=== PATIENT | male | born 1940 | race Caucasian/White ===

== ENCOUNTER 2016-06-19 17:12 | Emergency (ER) | payer OTHER ==
[~2016-06-19] VITALS: Ht 187.9 cm; Wt 75.3 kg
[~2016-06-19 17:12] MED LIST: ASPIRIN325 M2 PO; B12,B-12,B 12500 MC1 PO; FLAGYL500 MG PO; FLOMAX0.4 MG PO; LEVAQUIN750 M1 PO; NATURE'S BLEND F1 MG PO; PLAVIX75 M1 PO; SIMVASTATIN20 MG PO; VICODIN 5-3001 EACH PO
[2016-06-19 18:03] LABS: BILIRUBIN NEGATIVE (NEGATIVE); BLOOD TRACE-INTACT (NEGATIVE); CLARITY SL CLOUDY (CLEAR); COLOR YELLOW (YELLOW); GLUCOSE NEGATIVE (NEGATIVE); KETONE NEGATIVE (NEGATIVE); LEUKO ESTERASE 1+ (NEGATIVE); NITRITE POSITIVE (NEGATIVE); PROTEIN TRACE (NEGATIVE); UROBILINOGEN 0.2 E.U./dl (0.2-1.0)
[2016-06-19 18:23] LABS: BACTERIA 3+; URINE REFLEX COMMENT YES (NO)
[2016-06-19] MEDS ORDERED: KEFLEX500 M1 PO (18:41)
== END 2016-06-19 18:47 | disposition home or self-care (01) ==
LOC: ED 17:12
PROVIDERS: Emergency Medicine
DX: N39.0 Urinary tract infection, site not specified (principal); R33.9 Retention of urine, unspecified; R31.9 Hematuria, unspecified; I99.8 Other disorder of circulatory system; E78.5 Hyperlipidemia, unspecified; F17.200 Nicotine dependence, unspecified, uncomplicated; Z85.46 Personal history of malignant neoplasm of prostate; Z88.8 Allergy status to other drugs, medicaments and biological substances; Z79.82 Long term (current) use of aspirin

== ENCOUNTER 2016-12-25 09:46 | Emergency (ER) | payer OTHER ==
[~2016-12-25] VITALS: Wt 62.1 kg
[~2016-12-25 09:46] MED LIST changes: +KEFLEX500 M1 PO
[2016-12-25 10:13] LABS: BILIRUBIN NEGATIVE (NEGATIVE); BLOOD 3+ (NEGATIVE); CLARITY SL CLOUDY (CLEAR); COLOR YELLOW (YELLOW); GLUCOSE NEGATIVE (NEGATIVE); KETONE NEGATIVE (NEGATIVE); LEUKO ESTERASE 1+ (NEGATIVE); NITRITE NEGATIVE (NEGATIVE); PROTEIN 2+ (NEGATIVE); UROBILINOGEN 0.2 E.U./dl (0.2-1.0)
[2016-12-25 10:37] LABS: BACTERIA 2+; RBC TNTC rbc/hpf (0-2); URINE REFLEX COMMENT YES (NO); WBC 31-40 wbc/hpf (0-5)
[2016-12-25] MEDS ORDERED: BACTRIM DS 8001 TA1 PO (10:39)
[2016-12-25] MEDS ORDERED: PYRIDIUM200 M1 PO (10:39)
== END 2016-12-25 12:18 | disposition home or self-care (01) ==
LOC: ED 09:46
PROVIDERS: Nurse Practitioner Family
DX: R33.9 Retention of urine, unspecified (principal); N39.0 Urinary tract infection, site not specified; R31.9 Hematuria, unspecified; R03.0 Elevated blood-pressure reading, without diagnosis of hypertension; F17.200 Nicotine dependence, unspecified, uncomplicated; Z90.49 Acquired absence of other specified parts of digestive tract; Z98.890 Other specified postprocedural states; Z79.82 Long term (current) use of aspirin; Z79.899 Other long term (current) drug therapy; Z88.8 Allergy status to other drugs, medicaments and biological substances

== ENCOUNTER 2017-01-05 12:36 | Inpatient (IN) | payer OTHER ==
[~2017-01-05] VITALS: Ht 187.9 cm; Wt 60.3 kg
[2017-01-05] VITALS (7 sets, daily range): BP systolic 100–127; BP diastolic 51–69
--- NOTE | ~2017-01-05 | O ---
[place], [place] OPERATIVE NOTE NAME: LUANNE SANDERS UNIT #: [id number] ROOM: 520 DOCTOR: YUDI SANTORO MD BIRTHDATE: [birth year] DOS: GASTROENDOSCOPIC REPORT HISTORY OF PRESENT ILLNESS: The patient has presented with chief complaint of GI bleed, black tarry stool, undergone investigation, status post transfusion. PROCEDURE: Today's procedure part of investigation is panendoscopy plus photographic series plus biopsy. PREMEDICATION: Versed and Diprivan. SCOPE: Olympus forward-viewing gastroscope Q10 video. REPORT: After putting the patient in the left lateral position and after application of lubricant to the scope, the scope was introduced; thereafter, under direct visualization, advanced through the length of esophagus without difficulty into gastric pouch. 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 Small antral biopsy obtained for H. pylori. Duodenal bulb, second and third part within normal limits. The patient extubated and tolerated procedure well. 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 Most likely the cause of bleeding is considered to be arteriovenous malformations, especially in view of the fact the patient has been patient has been on aspirin 325 mg daily. We did not consider coagulation therapy due to his platelet malfunction and due to abandon number of arteriovenous malformations would not have been a feasible management and on the other hand due to prostatic CA radiation therapy, hormonal therapy would not be a good idea; therefore, transfusion and removal of aspirin if possible or reduction of the aspirin dosage and if the aspirin does continue, Carafate 1 gram q.i.d. in addition to Protonix would be recommended. [place], [place] OPERATIVE NOTE NAME: LUANNE SANDERS Mart UNIT #: [id number] ROOM: 520 DOCTOR: YUDI SANTORO MD BIRTHDATE: [birth year] YUDI SANTORO MD CM:OPRECORD:OPERATIVE NOTE [id number] YUDI SANTORO MD 01/07/171935 interface
--- NOTE | ~2017-01-05 | O ---
[place], [place] OPERATIVE NOTE NAME: LUANNE SANDERS UNIT #: [id number] ROOM: 520 DOCTOR: YUDI SANTORO MD BIRTHDATE: [birth year] DOS: HISTORY OF PRESENT ILLNESS: A 76-year-old patient who has presented with drop in H and H, melanotic stool, status post transfusion for hemoglobin of 7, status post improvement of his medical conditions for anemia. His latest H and H have improved to 10 and 33. His platelet count has been 449. His urine culture, no bacteria. His comprehensive metabolic panel, electrolytes balanced, BUN 2.7, liver function test normal. His chest x-ray, COPD without active pulmonary disease. PAST MEDICAL HISTORY: Ischemic colitis in the past and prostate CA and peripheral vascular disease, protein malnutrition and GI bleed. SOCIAL HISTORY: Nonalcohol consumer, however is smoker. FAMILY HISTORY: Noncontributory. ALLERGIES: ALCOHOL, LIDOCAINE AND BACTINE. MEDICATIONS: List has been reviewed. The patient has been on aspirin product. PROCEDURE: Today's procedure part of investigation of GI bleed is colonoscopy and panendoscopy. PREMEDICATION: Versed and Diprivan. SCOPE: Olympus forward-viewing colonoscope 10L video. REPORT: After putting the patient in the left lateral position and after application of lubricant to rectal pouch and digital examination, scope was introduced. Thereafter, under direct visualization, I advanced through the length of colon with difficulty due to tortuosity of colon. We were expecting to find radiation proctitis on this patient; however, the rectal anatomy, rectosigmoid anatomy all within normal limits. Scope was negotiated through a tortuous colon to anastomotic site. Photographic series of suture line and fibrosis of the area was obtained. Small bowel segment was entered, which was benign. The patient extubated, tolerated procedure well. IMPRESSION: No radiation proctitis. No evidence of ulceration, no lower gastrointestinal bleed, status post previous subsegmental resection of cecum with normal anastomotic site from 1998. PLAN AND DISCUSSION: We are going to proceed with panendoscopy. [place], [place] OPERATIVE NOTE NAME: LUANNE SANDERS UNIT #: [id number] ROOM: 520 DOCTOR: YUDI SANTORO MD BIRTHDATE: [birth year] YUDI SANTORO MD CM:SARAVANANORD:OPERATIVE NOTE [id number] YUDI SANTORO MD 01/07/171913 interface
[~2017-01-05 12:36] MED LIST changes: +BACTRIM DS 8001 TA1 PO; +PYRIDIUM200 M1 PO
[2017-01-05 12:58] LABS: BASO % 0.2 % (0.0-1.0); EOS # 0.2 10*3/uL (0.0-0.4); HEMATOCRIT 28.2 % (42.0-52.0); HEMOGLOBIN 8.6 g/dl (14.0-18.0); LYMPH # 1.2 10*3/uL (1.3-4.4); LYMPH % 12.2 % (27.0-41.0); MEAN CELL VOLUME 87.6 fl (80.0-94.0); MEAN CORPUSCULAR HGB 26.7 pg (27.0-31.0); MEAN CORPUSCULAR HGB CONC 30.5 g/dl (33.0-37.0); MEAN PLATELET VOLUME 8.6 fl (9.6-12.3); MONO # 0.7 10*3/uL (0.1-1.0); MONO % 7.6 % (3.0-9.0); NEUT # 7.3 10*3/uL (2.3-7.9); NEUT % 77.6 % (47.0-73.0); PLATELET COUNT AUTOMATED 391 10*3/uL (130-400); RED BLOOD COUNT 3.22 10*6/uL (4.50-5.90); RED CELL DISTRI WIDTH 17.2 % (0-14.5); WHITE BLOOD COUNT 9.4 10*3/uL (4.8-10.8)
[2017-01-05 13:06] LABS: BILIRUBIN NEGATIVE (NEGATIVE); BLOOD 2+ (NEGATIVE); CLARITY CLOUDY (CLEAR); COLOR YELLOW (YELLOW); GLUCOSE NEGATIVE (NEGATIVE); KETONE NEGATIVE (NEGATIVE); LEUKO ESTERASE 2+ (NEGATIVE); NITRITE NEGATIVE (NEGATIVE); PH 7.5 (5.0-9.0); PROTEIN 1+ (NEGATIVE); UROBILINOGEN 0.2 E.U./dl (0.2-1.0)
[2017-01-05 13:06] LABS: PROTHROMBIN TIME 10.7 SECONDS (9.0-12.4)
[2017-01-05 13:15] LABS: ALBUMIN 2.6 gm/dl (3.1-4.5); ALKALINE PHOSPHATASE 79 U/L (45-117); BILIRUBIN, TOTAL 0.4 mg/dl (0.2-1.0); BUN 10 mg/dl (7-24); CARBON DIOXIDE 26 mmol/L (21-32); CHLORIDE 103 mmol/L (98-107); EST GLOM FILT AFRICAN AMERICAN > 60 ml/min; GLUCOSE 100 mg/dL (65-99); MAGNESIUM 2.3 mg/dL (1.5-2.1); POTASSIUM 3.6 mmol/L (3.5-5.1); SGOT/AST 11 IU/L (3-35); SGPT/ALT 15 U/L (12-78); SODIUM 136 mmol/L (136-145); TOTAL PROTEIN 7.2 gm/dL (6.4-8.2)
[2017-01-05 13:45] LABS: BACTERIA 3+; CALCIUM OXALATE CRYSTALS 1+
[2017-01-05 13:46] LABS: RBC TNTC rbc/hpf (0-2); YEAST 3+
[2017-01-05 13:47] LABS: URINE REFLEX COMMENT YES (NO)
[2017-01-05] MEDS ORDERED: TAMSULOSIN HCL0.4 MG PO (18:10)
[2017-01-05] MEDS ORDERED: MELATONIN3 MG PO (18:10)
[2017-01-05] MEDS ORDERED: TRAMADOL HCL50 MG PO (18:11)
[2017-01-05] MEDS ORDERED: ENSURE PLUS 23237 ML PO (18:14)
[2017-01-06] VITALS (11 sets, daily range): BP systolic 100–121; BP diastolic 50–66
[2017-01-06 06:03] LABS: BASO % 0.3 % (0.0-1.0); EOS # 0.4 10*3/uL (0.0-0.4); EOS % 5.5 % (1.0-4.0); HEMATOCRIT 25.6 % (42.0-52.0); HEMOGLOBIN 7.8 g/dl (14.0-18.0); LYMPH # 1.4 10*3/uL (1.3-4.4); LYMPH % 18.2 % (27.0-41.0); MEAN CELL VOLUME 88.6 fl (80.0-94.0); MEAN CORPUSCULAR HGB CONC 30.5 g/dl (33.0-37.0); MONO # 0.6 10*3/uL (0.1-1.0); MONO % 8.2 % (3.0-9.0); NEUT # 5.2 10*3/uL (2.3-7.9); NEUT % 67.5 % (47.0-73.0); PLATELET COUNT AUTOMATED 383 10*3/uL (130-400); RED BLOOD COUNT 2.89 10*6/uL (4.50-5.90); RED CELL DISTRI WIDTH 17.1 % (0-14.5); WHITE BLOOD COUNT 7.7 10*3/uL (4.8-10.8)
[2017-01-06 06:09] LABS: ALBUMIN 2.2 gm/dl (3.1-4.5); ALKALINE PHOSPHATASE 66 U/L (45-117); BILIRUBIN, TOTAL 0.3 mg/dl (0.2-1.0); BUN 8 mg/dl (7-24); CARBON DIOXIDE 24 mmol/L (21-32); CHLORIDE 109 mmol/L (98-107); CHOLESTEROL 69 mg/dL (<200); EST GLOM FILT AFRICAN AMERICAN > 60 ml/min; GLUCOSE 81 mg/dL (65-99); HDL CHOLESTEROL 42 mg/dl (40-60); LDL CHOLESTEROL 13 mg/dL (9-159); MAGNESIUM 2.1 mg/dL (1.5-2.1); PHOSPHOROUS 2.7 mg/dL (2.5-4.9); POTASSIUM 3.9 mmol/L (3.5-5.1); SGOT/AST 8 IU/L (3-35); SGPT/ALT 11 U/L (12-78); SODIUM 141 mmol/L (136-145); TOTAL PROTEIN 6.1 gm/dL (6.4-8.2); TRIGLYCERIDES 69 mg/dl (<150); VLDL CHOLESTEROL 14 mg/dL (6-40)
[2017-01-06 06:15] LABS: FREE T4 1.24 ng/dl (0.76-1.46)
[2017-01-06 07:08] LABS: HEMOGLOBIN A1c 4.9 % (4.8-5.6)
[2017-01-07] VITALS (9 sets, daily range): BP systolic 88–133; BP diastolic 33–75
[2017-01-07 06:07] LABS: BASO % 0.2 % (0.0-1.0); EOS # 0.3 10*3/uL (0.0-0.4); EOS % 3.1 % (1.0-4.0); LYMPH # 1.5 10*3/uL (1.3-4.4); LYMPH % 14.4 % (27.0-41.0); MEAN CELL VOLUME 87.3 fl (80.0-94.0); MEAN PLATELET VOLUME 8.8 fl (9.6-12.3); MONO # 0.9 10*3/uL (0.1-1.0); MONO % 8.2 % (3.0-9.0); NEUT # 7.8 10*3/uL (2.3-7.9); NEUT % 73.7 % (47.0-73.0); PLATELET COUNT AUTOMATED 449 10*3/uL (130-400); RED BLOOD COUNT 3.85 10*6/uL (4.50-5.90); RED CELL DISTRI WIDTH 16.6 % (0-14.5); WHITE BLOOD COUNT 10.6 10*3/uL (4.8-10.8)
[2017-01-07 06:28] LABS: HEMATOCRIT 33.6 % (42.0-52.0); HEMOGLOBIN 10.4 g/dl (14.0-18.0)
[2017-01-07 06:44] LABS: ALBUMIN 2.7 gm/dl (3.1-4.5); BUN 6 mg/dl (7-24); CARBON DIOXIDE 26 mmol/L (21-32); CHLORIDE 108 mmol/L (98-107); GLUCOSE 101 mg/dL (65-99); POTASSIUM 4.4 mmol/L (3.5-5.1); SODIUM 140 mmol/L (136-145)
[2017-01-07 06:47] LABS: ALKALINE PHOSPHATASE 79 U/L (45-117); BILIRUBIN, TOTAL 0.5 mg/dl (0.2-1.0); EST GLOM FILT AFRICAN AMERICAN > 60 ml/min; SGOT/AST 10 IU/L (3-35); SGPT/ALT 13 U/L (12-78); TOTAL PROTEIN 7.2 gm/dL (6.4-8.2)
[2017-01-08] VITALS: BP 104/48
[2017-01-08 06:19] LABS: BASO % 0.2 % (0.0-1.0); EOS # 0.1 10*3/uL (0.0-0.4); EOS % 1.4 % (1.0-4.0); HEMATOCRIT 29.4 % (42.0-52.0); HEMOGLOBIN 9.1 g/dl (14.0-18.0); LYMPH # 1.5 10*3/uL (1.3-4.4); LYMPH % 16.6 % (27.0-41.0); MEAN CELL VOLUME 87.2 fl (80.0-94.0); MEAN PLATELET VOLUME 8.8 fl (9.6-12.3); MONO # 0.8 10*3/uL (0.1-1.0); MONO % 9.2 % (3.0-9.0); NEUT # 6.5 10*3/uL (2.3-7.9); NEUT % 72.2 % (47.0-73.0); PLATELET COUNT AUTOMATED 325 10*3/uL (130-400); RED BLOOD COUNT 3.37 10*6/uL (4.50-5.90); RED CELL DISTRI WIDTH 16.8 % (0-14.5); WHITE BLOOD COUNT 9.1 10*3/uL (4.8-10.8)
[2017-01-08 06:49] LABS: ALBUMIN 2.2 gm/dl (3.1-4.5); BILIRUBIN, TOTAL 0.5 mg/dl (0.2-1.0); BUN 7 mg/dl (7-24); CARBON DIOXIDE 26 mmol/L (21-32); CHLORIDE 107 mmol/L (98-107); EST GLOM FILT AFRICAN AMERICAN > 60 ml/min; GLUCOSE 92 mg/dL (65-99); POTASSIUM 3.5 mmol/L (3.5-5.1); SGOT/AST 13 IU/L (3-35); SGPT/ALT 11 U/L (12-78); SODIUM 140 mmol/L (136-145)
[2017-01-08 06:59] LABS: ALKALINE PHOSPHATASE 67 U/L (45-117); TOTAL PROTEIN 6.1 gm/dL (6.4-8.2)
[2017-01-08 08:00] VITALS: BP 98/60
[2017-01-08 12:00] VITALS: BP 84/64
[2017-01-08 16:00] VITALS: BP 110/47
[2017-01-08 20:00] VITALS: BP 99/45
[2017-01-09] VITALS: BP 87/31
[2017-01-09 00:05] VITALS: BP 98/50
[2017-01-09 06:58] LABS: BASO % 0.2 % (0.0-1.0); EOS # 0.2 10*3/uL (0.0-0.4); EOS % 1.4 % (1.0-4.0); HEMOGLOBIN 8.6 g/dl (14.0-18.0); IG # 0.1 10*3/uL (0.0-0.1); LYMPH # 1.5 10*3/uL (1.3-4.4); LYMPH % 14.4 % (27.0-41.0); MEAN CELL VOLUME 86.7 fl (80.0-94.0); MEAN CORPUSCULAR HGB 26.6 pg (27.0-31.0); MEAN CORPUSCULAR HGB CONC 30.7 g/dl (33.0-37.0); MEAN PLATELET VOLUME 9.1 fl (9.6-12.3); MONO # 0.7 10*3/uL (0.1-1.0); NEUT # 8.1 10*3/uL (2.3-7.9); NEUT % 76.2 % (47.0-73.0); PLATELET COUNT AUTOMATED 284 10*3/uL (130-400); RED BLOOD COUNT 3.23 10*6/uL (4.50-5.90); RED CELL DISTRI WIDTH 16.9 % (0-14.5); WHITE BLOOD COUNT 10.6 10*3/uL (4.8-10.8)
[2017-01-09 08:00] VITALS: BP 83/46
[2017-01-09 09:46] VITALS: BP 100/56
[2017-01-09 12:00] VITALS: BP 87/44
[2017-01-09] MEDS ORDERED: MIRTAZAPINE15 M2 PO (15:13)
[2017-01-09] MEDS ORDERED: PROTONIX40 MG PO (15:14)
== END 2017-01-09 17:20 | disposition home or self-care (01) | DRG 377 ==
LOC: ED 12:36 → EDHOLD 17:06 → 5E 17:06
PROVIDERS: Internal Medicine Hospice and Palliative Medicine; Nurse Practitioner Family; Registered Nurse; Student in an Organized Health Care Education/Training Program
PROC: 0DJD8ZZ Inspection of Lower Intestinal Tract, Via Natural or Artificial Opening Endoscopic (ICD-10-PCS; principal; 2017-01-07)
PROC: 0DB68ZX Excision of Stomach, Via Natural or Artificial Opening Endoscopic, Diagnostic (ICD-10-PCS; principal; 2017-01-07)
DX: K31.811 Angiodysplasia of stomach and duodenum with bleeding (principal); E41 Nutritional marasmus; E87.8 Other disorders of electrolyte and fluid balance, not elsewhere classified; E43 Unspecified severe protein-calorie malnutrition; C61 Malignant neoplasm of prostate; E83.51 Hypocalcemia; D62 Acute posthemorrhagic anemia; Z89.611 Acquired absence of right leg above knee; R31.9 Hematuria, unspecified; Z68.1 Body mass index [BMI] 19.9 or less, adult; K44.9 Diaphragmatic hernia without obstruction or gangrene; E78.5 Hyperlipidemia, unspecified; I73.9 Peripheral vascular disease, unspecified; K59.04 Chronic idiopathic constipation; D72.810 Lymphocytopenia; F17.210 Nicotine dependence, cigarettes, uncomplicated; Z90.49 Acquired absence of other specified parts of digestive tract; Z92.3 Personal history of irradiation; Z88.8 Allergy status to other drugs, medicaments and biological substances; Z80.0 Family history of malignant neoplasm of digestive organs; Z82.49 Family history of ischemic heart disease and other diseases of the circulatory system

== ENCOUNTER 2017-02-02 21:42 | Inpatient (IN) | payer OTHER ==
[~2017-02-02] VITALS: Ht 172.7 cm; Wt 58.2 kg
--- NOTE | ~2017-02-02 | PR ---
[place], [place] PROGRESS NOTE NAME: LUANNE SANDERS [facility] #: [id number] UNIT #: [id number] ROOM: 510 DOCTOR: JOSE LUIS RICHTER MD BIRTHDATE: [birth year] DOS: 02/07/2017 SUBJECTIVE: The patient was seen today 02/07/2017 just prior to a pharmacologic stress test. He is a 76-year-old man who presented several days ago with altered mentation and weakness. He was found to have an elevated troponin. He recently completed radiation therapy for prostate cancer and does have some problems with urinary retention and recurrent urinary tract infections. The of his troponin elevations suggested that he had a myocardial infarction prior to his hospitalization. He has had no symptoms of coronary artery disease and no acute EKG changes. An echocardiogram done on 02/03/2017 showed normal left ventricular size and systolic function with stage II diastolic relaxation abnormalities. Wall motion could not be assessed. Urinary tract infection has been treated and his sensorium has improved. PHYSICAL EXAMINATION: VITAL SIGNS: Today, his pulse is 60 and regular with an occasional premature beat. Blood pressure is 125/48. He is afebrile. He weighs 58.2 kilograms with a body mass index of 19.5. NECK: Supple. He has no jugular distention. Carotids are full. LUNGS: Respirations are unlabored with distant lung sounds. HEART: Has a regular rhythm. Heart tones are also distant. He has a fourth heart sound, but no third heart sound or murmur. ABDOMEN: Benign. 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 His left ankle appears normal. IMPRESSION: 1. Recent myocardial infarction. 2. Urinary tract infection. 3. Indwelling Kirkpatrick catheter. 4. Status post radiation therapy for prostate cancer. PLAN: We will proceed with a pharmacologic stress test today. Further recommendations will depend upon the results of his stress test. We thank the hospitalist physicians for asking our advice regarding his care. [place], [place] PROGRESS NOTE NAME: LUANNE SANDERS [facility] #: [id number] UNIT #: [id number] ROOM: 510 DOCTOR: JOSE LUIS RICHTER MD BIRTHDATE: [birth year] JOSE LUIS RICHTER MD CM:PNTRANS 1151 [id number] JOSE LUIS RICHTER MD 02/07/17 1312 interface
[2017-02-02 01:30] VITALS: BP 103/58
[~2017-02-02 21:42] MED LIST changes: +ENSURE PLUS 23237 ML PO; +MELATONIN3 MG PO; +MIRTAZAPINE15 M2 PO; +PROTONIX40 MG PO; +TAMSULOSIN HCL0.4 MG PO; +TRAMADOL HCL50 MG PO
[2017-02-02 21:54] VITALS: BP 104/49
[2017-02-02 22:21] LABS: BASO % 0.2 % (0.0-1.0); EOS % 0.3 % (1.0-4.0); HEMOGLOBIN 9.1 g/dl (14.0-18.0); LYMPH # 1.4 10*3/uL (1.3-4.4); LYMPH % 15.8 % (27.0-41.0); MEAN CELL VOLUME 82.9 fl (80.0-94.0); MEAN CORPUSCULAR HGB 25.1 pg (27.0-31.0); MEAN CORPUSCULAR HGB CONC 30.3 g/dl (33.0-37.0); MEAN PLATELET VOLUME 9.1 fl (9.6-12.3); MONO # 0.7 10*3/uL (0.1-1.0); MONO % 8.1 % (3.0-9.0); NEUT # 6.8 10*3/uL (2.3-7.9); NEUT % 75.2 % (47.0-73.0); PLATELET COUNT AUTOMATED 215 10*3/uL (130-400); RED BLOOD COUNT 3.62 10*6/uL (4.50-5.90); RED CELL DISTRI WIDTH 16.3 % (0-14.5); WHITE BLOOD COUNT 9.1 10*3/uL (4.8-10.8)
[2017-02-02 22:30] LABS: INTERNATIONAL NORM RATIO 1.1 (2.0-3.5)
[2017-02-02 22:37] LABS: ALBUMIN 2.4 gm/dl (3.1-4.5); ALKALINE PHOSPHATASE 94 U/L (45-117); BUN 10 mg/dl (7-24); CHLORIDE 107 mmol/L (98-107); LIPASE 94 U/L (73-393); MAGNESIUM 2.2 mg/dL (1.5-2.1); POTASSIUM 3.9 mmol/L (3.5-5.1); SGOT/AST 28 IU/L (3-35); SGPT/ALT 17 U/L (12-78); SODIUM 140 mmol/L (136-145); TOTAL PROTEIN 6.9 gm/dL (6.4-8.2)
--- NOTE | 2017-02-02 22:40 | NUR ---
DR. BERG INFORMED OF CRITICAL LAB RESULTS.
[2017-02-02 22:52] LABS: BILIRUBIN NEGATIVE (NEGATIVE); BLOOD 2+ (NEGATIVE); CLARITY CLOUDY (CLEAR); COLOR YELLOW (YELLOW); GLUCOSE NEGATIVE (NEGATIVE); KETONE TRACE (NEGATIVE); LEUKO ESTERASE 3+ (NEGATIVE); NITRITE POSITIVE (NEGATIVE); SPECIFIC GRAVITY 1.015 (1.005-1.030)
[2017-02-02 23:10] LABS: BACTERIA 3+
[2017-02-02 23:13] LABS: WBC TNTC wbc/hpf (0-5)
[2017-02-03 01:30] VITALS: BP 103/58
--- NOTE | 2017-02-03 01:30 | NUR ---
A 76, admitted to ICCU, under the services of BLAIRE Jones DO with a diagnosis of UTI, ELEVATED TROPONIN. Chief complaint is GENERALIZED WEAKNESS FOR 2 DAYS, UNABLE TO AMBULATE. Patient arrived via ambulance from ER. Monitor applied. Initial assessment completed. Vital signs taken and recorded. BLAIRE JONES DO notified of admission to the unit. Orders received. See assessment for past medical history, medications and allergies. Patient and/or family oriented to unit. [facility]U visitation policy reviewed. Clothing/patient valuable form completed. BLANCA FERREIRA
--- NOTE | 2017-02-03 01:47 | NUR ---
UNABLE TO VERIFY HOME MEDS, OR ANY MEDICAL HISTORY. PATIENT DISORIENTED. NO FAMILY CAME TO FLOOR WITH PATIENT.
[2017-02-03 04:00] VITALS: BP 102/58
[2017-02-03 05:51] LABS: BASO % 0.2 % (0.0-1.0); EOS % 0.4 % (1.0-4.0); HEMOGLOBIN 8.1 g/dl (14.0-18.0); LYMPH # 1.2 10*3/uL (1.3-4.4); LYMPH % 13.4 % (27.0-41.0); MEAN CORPUSCULAR HGB 25.6 pg (27.0-31.0); MEAN CORPUSCULAR HGB CONC 31.2 g/dl (33.0-37.0); MEAN PLATELET VOLUME 9.1 fl (9.6-12.3); MONO # 0.7 10*3/uL (0.1-1.0); MONO % 7.9 % (3.0-9.0); NEUT % 77.5 % (47.0-73.0); PLATELET COUNT AUTOMATED 200 10*3/uL (130-400); RED BLOOD COUNT 3.17 10*6/uL (4.50-5.90); RED CELL DISTRI WIDTH 16.3 % (0-14.5); WHITE BLOOD COUNT 9.1 10*3/uL (4.8-10.8)
[2017-02-03 06:21] LABS: ACT PARTIAL THROMBO TIME 43.5 SECONDS (20.8-31.5); INTERNATIONAL NORM RATIO 1.1 (2.0-3.5)
[2017-02-03 06:22] LABS: BUN 10 mg/dl (7-24); CHLORIDE 111 mmol/L (98-107); CHOLESTEROL 83 mg/dL (<200); CREATININE 0.63 mg/dL (0.70-1.30); HDL CHOLESTEROL 38 mg/dl (40-60); LDL CHOLESTEROL 30 mg/dL (9-159); MAGNESIUM 1.8 mg/dL (1.5-2.1); PHOSPHOROUS 2.7 mg/dL (2.5-4.9); POTASSIUM 3.6 mmol/L (3.5-5.1); SODIUM 141 mmol/L (136-145); TRIGLYCERIDES 74 mg/dl (<150); VLDL CHOLESTEROL 15 mg/dL (6-40)
[2017-02-03 08:00] VITALS: BP 126/54
--- NOTE | 2017-02-03 09:15 | NUR ---
MEDS RECONCILED FROM DC SUMMARY LIST FROM 2 WEEKS AGO, TO BRING IN PILL BOTTLES TO CONFIRM
[2017-02-03 09:33] LABS: IRON 36 ug/dL (65-175); TOTAL IRON BINDING CAPACITY 331 ug/dl (250-450)
[2017-02-03 10:04] LABS: VITAMIN D, 25-HYDROXY 32.3 ng/mL (30-100)
--- NOTE | 2017-02-03 11:13 | NUR ---
BROUGHT IN PILL BOTTLES, HOME MEDS CONFIRMED
--- NOTE | 2017-02-03 11:27 | NUR ---
Spinner Fixer in to talk to patient. Patient states lives at home with . There are no steps in the home. Physician: lucia melendez Pharmacy: [facility] services: none Patient's level of ADLs: MINIMAL ASSIST Patient has working utilities: all working DME: cane, walker, wheelchair Follow-up physician's appointment after d/c: will be made by hospitalist nurse director upon discharge Does patient want to access PORTAL?: no Discharge plan discussed with patient, present, patient lives at home with , states he is independent in adls and ambulation, discussed with them a discharge plan including a short term shelter and both refused, stated patient would be going home with her, also discussed VNA and she was receptive to this, given choice of companies, she chose [facility], enterprise resource planner will sent referral to [facility] for when patient is medically stable for discharge. MYRA ÁLVAREZ
[2017-02-03 12:00] VITALS: BP 110/42
--- NOTE | 2017-02-03 15:12 | NUR ---
Nutritional Support Services Note: Pt with Dx of severe protein calorie malnutrition. Pt states he cannot drink any supplement as they give him diarrhea. Discussed protein rich foods and need for increase in protein and calories. Pt is receptive to Beneprotein packets QID, with meals and at hs snack. Appetite is good for meals. Will follow as needed. Current wt 128#, 5# decrease in one month. Carolyn Holbrook
[2017-02-03 16:00] VITALS: BP 95/54
[2017-02-03 20:00] VITALS: BP 123/57
--- NOTE | 2017-02-03 20:07 | NUR ---
FAMILY MEMBER VISITS. PT READING NEWSPAPER.
[2017-02-04] VITALS: BP 130/60
[2017-02-04 04:00] VITALS: BP 98/36
[2017-02-04 04:38] LABS: BASO % 0.4 % (0.0-1.0); EOS # 0.1 10*3/uL (0.0-0.4); EOS % 1.9 % (1.0-4.0); HEMATOCRIT 25.9 % (42.0-52.0); LYMPH # 1.5 10*3/uL (1.3-4.4); LYMPH % 20.6 % (27.0-41.0); MEAN CORPUSCULAR HGB 25.6 pg (27.0-31.0); MEAN CORPUSCULAR HGB CONC 30.9 g/dl (33.0-37.0); MEAN PLATELET VOLUME 9.3 fl (9.6-12.3); MONO # 0.6 10*3/uL (0.1-1.0); MONO % 8.6 % (3.0-9.0); NEUT # 5.1 10*3/uL (2.3-7.9); PLATELET COUNT AUTOMATED 215 10*3/uL (130-400); RED BLOOD COUNT 3.12 10*6/uL (4.50-5.90); RED CELL DISTRI WIDTH 16.6 % (0-14.5); WHITE BLOOD COUNT 7.4 10*3/uL (4.8-10.8)
--- NOTE | 2017-02-04 06:23 | NUR ---
PT CURLED ON HIS RIGHT SIDE...HAS BEEN EXPELLING FLATUS INTERMITTENTLY THROUGHOUT THE NIGHT.... FREQUENT CHECKS, INCLUDING NOW, FIND HIM TO BE CLEAN AND DRY. HE CLAIMS COMFORT AND BEGINS TO PULL BLANKETS ON QUICKLY AND RETURN TO SLEEP.
[2017-02-04 08:00] VITALS: BP 102/52
--- NOTE | 2017-02-04 09:00 | NUR ---
case management visits with patient, patient will be going home with , will notify [facility] when patient is medically stable for discharge
[2017-02-04 12:00] VITALS: BP 122/50
--- NOTE | 2017-02-04 12:12 | NUR ---
UP TO RECLINER AFTER PT PUT HIS LEG ON, WITH HEAVY ASSIST X 2, PT WILL NOT STAND UPRIGHT DESPITE MULTIPLE CLUES TO STAND TALL, HE HANGS HIS HEAD AND LEANS HEAVILY FORWARD
--- NOTE | 2017-02-04 12:22 | NUR ---
insurance demos given to Tia, emailed corporate fax team fax number for clinicals, reference number is [id number]
--- NOTE | 2017-02-04 14:58 | NUR ---
PHYSICAL THERAPY Atient evaluated on 5, full evaluation to follow. Continue with PT as per sunil of care with fall, max(A) x 2, right BKA and acute debility as well as oor trunk control precautions. Will require SNF versus in-patint rehab for mpaired mobility ion order to return to (i) PLOF. PAtient mod complexity via bartholomew review, tests and evaluation: 22314. Thank you for this referral. Lashae Soto,PT
--- NOTE | 2017-02-04 15:11 | NUR ---
Occupational Therapy evaluation completed this date in ICCU with full evaluation to follow. Precaution includes fall risk, impaired cognition, ICCU, fernandez, moderate complexity level. Recommend OT per POC and SNF upon d/c to enable return home at [facility]. Becca Taylor OTR/L
[2017-02-04 16:00] VITALS: BP 126/50
--- NOTE | 2017-02-04 18:32 | NUR ---
TRANSFERRED TO 510, REPORT TO CASSANDRA GIBSON
[2017-02-04 20:00] VITALS: BP 114/57
[2017-02-05] VITALS: BP 116/60
--- NOTE | 2017-02-05 00:18 | NUR ---
24 HR chart check completed.
[2017-02-05 01:06] VITALS: BP 116/60
[2017-02-05 07:17] LABS: BASO % 0.3 % (0.0-1.0); EOS # 0.3 10*3/uL (0.0-0.4); EOS % 3.2 % (1.0-4.0); HEMATOCRIT 26.6 % (42.0-52.0); HEMOGLOBIN 8.2 g/dl (14.0-18.0); LYMPH # 1.5 10*3/uL (1.3-4.4); MEAN CELL VOLUME 82.6 fl (80.0-94.0); MEAN CORPUSCULAR HGB 25.5 pg (27.0-31.0); MEAN CORPUSCULAR HGB CONC 30.8 g/dl (33.0-37.0); MONO # 0.7 10*3/uL (0.1-1.0); MONO % 8.5 % (3.0-9.0); NEUT # 5.3 10*3/uL (2.3-7.9); NEUT % 68.6 % (47.0-73.0); PLATELET COUNT AUTOMATED 227 10*3/uL (130-400); RED BLOOD COUNT 3.22 10*6/uL (4.50-5.90); RED CELL DISTRI WIDTH 16.9 % (0-14.5); WHITE BLOOD COUNT 7.7 10*3/uL (4.8-10.8)
[2017-02-05 08:00] VITALS: BP 116/55
--- NOTE | 2017-02-05 08:40 | NUR ---
PT SITTING UP EATING BREAKFAST, NO VOICED C/O, WILL MONITOR
[2017-02-05 12:00] VITALS: BP 88/42; BP 96/52
--- NOTE | 2017-02-05 15:22 | NUR ---
DR SHAYLA SMITH NOTIFIED OF POSITIVE BLOOD CULTURE
--- NOTE | 2017-02-05 15:31 | NUR ---
DR MELENDEZ NOTIFIED OF CONSULT. HERE TO SEE PT
[2017-02-05 16:00] VITALS: BP 118/55
[2017-02-05 20:00] VITALS: BP 127/57
[2017-02-06] VITALS (7 sets, daily range): BP systolic 108–125; BP diastolic 46–84
[2017-02-06 07:06] LABS: CREATININE 0.48 mg/dL (0.70-1.30)
--- NOTE | 2017-02-06 08:25 | NUR ---
PT RESTING IN BED, NO DISTRESS NOTED, WILL MONITOR
--- NOTE | 2017-02-06 12:35 | NUR ---
SPOKE WITH DR LE REGARDING CALL FROM [facility] & FINDINGS FROM CT REPORT. INFORMED DR OF RECOMMENDATIONS FOR MRI. NO NEW ORDERS.
--- NOTE | 2017-02-06 16:32 | NUR ---
IV started left forearm with #22 angiocath after 1 attempts. The IV site was prepped with Chloraprep. Heparin lock attacheD Sterile dressing applied. Patient tolerated precedure well. Procedure performed according to [facility] policy & procedure. GUILHERME GAMING
[2017-02-07] VITALS: BP 116/40; BP 120/73
--- NOTE | 2017-02-07 02:42 | NUR ---
PT. WAS AWAKE. BATH GIVEN AND BEDLINENS CHANGED. PT. WENT BACK TO SLEEP. NPO STATUS.
[2017-02-07 04:00] VITALS: BP 129/57
--- NOTE | 2017-02-07 04:15 | NUR ---
PT. PULLED IV OUT. IV RESTARTED. IV started left forearm with #22 angiocath after 2nd attempts. The IV site was prepped with Chloraprep. Heparin lock attached. IV solution 0.9NS infusing at 100 cc/hr. Sterile dressing applied. Patient tolerated precedure well. Procedure performed according to [facility] policy & procedure. GLORIA YAN
--- NOTE | 2017-02-07 06:15 | NUR ---
NPO FOR STRESS TEST
[2017-02-07 08:00] VITALS: BP 125/48
--- NOTE | 2017-02-07 08:00 | NUR ---
UP TO [facility] TO HAVE LARGE LOOSE STOOL. THEN ASSISTED TO SIT IN CHAIR. VERY WEAK. IV FLUIDS INFUSING. NPO FOR STRESS TEST TODAY. PT ALSO HAVING MRI TODAY. MRI FORM COMPLETED.
--- NOTE | 2017-02-07 08:53 | NUR ---
TO [facility] VIA WHEELCHAIR FOR STRESS TEST.
--- NOTE | 2017-02-07 09:00 | NUR ---
media planner / buyer working with patient and family regarding discharge arrangements
--- NOTE | 2017-02-07 09:11 | NUR ---
PHYSICAL THERAPY Mr Michael was seen this AM 1:1 for his therapy session. Pt was supine in bed and is a right BKA. Transfer supine/sit MOD A X 1. Up working on sitting balance with trunk control precautions, with working on trunk control with rocking, right and left leaning back up sitting straight with working on no LOB in sitting with MOD to CGA X 1, and much verbal cueing for sitting balance. Followed by Pt putting in his prosthesis, then sit to stand, standing balance with MOD/MAX A X 1, X 3, with sitting rest after each stand. Followed by transfer up and pivot onto Pt's bedside commode MAX A X 1, followe by transfer up onto bedside chair, Pt with body alarm on, treatment time 27 min. NORA MEDRANO DESIGN PRINTING MACHINE SET UP OPERATOR.
--- NOTE | 2017-02-07 11:17 | NUR ---
Received message to SS from Dr. Shankar to discuss with family referring patient to [facility] acute rehab. Called daughter Sapphire and she stated she felt that would be the best thing to do and asked me to make referral. Contacted [facility] and faxed referral. Waiting on acceptance.
--- NOTE | 2017-02-07 11:20 | NUR ---
PATEL CATH EMPTIED FOR 750CC, FLOOR NOTIFIED.
--- NOTE | 2017-02-07 11:52 | NUR ---
INFORMED SIGNED CONSENT OBTAINED FOR LEXISCAN STRESS TEST WITH DR RICHTER. RESTING EKG SINUS BRADYCARDIA WITH PVC HR 58 BP 118/58. PULSE OX 97% LUNGS CLEAR. PT COMPLETED ON MINUTE OF A LEXISCAN PROTOCOL WITH PT RECEIVING LEXISCAN 0.4MG IV OVER 10 SEC[address] NO ARRHYTHMI[address] OR [address] CHAGNES NOTED. PT HAD NO SYMPOTMS WITH INJECTION. LAST RECOVERY HR OF 79 BP 110/50. PT IN STABLE CONDITION, AWAITING NUCLEAR IMAGES.
--- NOTE | 2017-02-07 14:16 | NUR ---
Patient has been accepted to [facility], Sarah will stop in tomorrow to see patient and talk with family. Will require insurance precert. Waiting for auth.
--- NOTE | 2017-02-07 14:30 | NUR ---
RETURNED TO ROOM AFTER STRESS AND MRI COMPLETED.
[2017-02-07 15:14] VITALS: BP 126/47
--- NOTE | 2017-02-07 15:16 | NUR ---
[facility] CALLED WITH RESULTS OF PT MRI. DR Kelly MERCADO NOTIFIED.
--- NOTE | 2017-02-07 16:00 | NUR ---
FAMILY HERE, STATE SHE SPOKE TO DR LE EARLIER AND THAT SHE WAS TO HAVE HER PAGED WHEN SHE CAME IN. DR Kelly MERCADO NOTIFIED THAT FAMILY WAS HERE.
[2017-02-07 16:13] VITALS: BP 122/50
[2017-02-07] MEDS ORDERED: CIPRO500 MG PO (16:18)
--- NOTE | 2017-02-07 16:30 | NUR ---
DR CHAVES VISITED.
[2017-02-07 20:11] VITALS: BP 116/40
[2017-02-08] VITALS (7 sets, daily range): BP systolic 111–133; BP diastolic 39–59
--- NOTE | 2017-02-08 04:34 | NUR ---
CALLED DR. HEALY AND NOTIFIED HIM OF 2ND BLOOD CULTURE DRAWN 02/05 ANAEROBIC BOTTLE POSITIVE FOR GRAM POSITIVE BACILLI. ORDERED ANOTHER SET OF BLOOD CULTURES AND CALL DR. MELENDEZ IN AM.
[2017-02-08 06:34] LABS: BASO % 0.3 % (0.0-1.0); EOS # 0.2 10*3/uL (0.0-0.4); EOS % 2.7 % (1.0-4.0); HEMATOCRIT 27.5 % (42.0-52.0); HEMOGLOBIN 8.5 g/dl (14.0-18.0); LYMPH # 1.4 10*3/uL (1.3-4.4); LYMPH % 19.2 % (27.0-41.0); MEAN CELL VOLUME 83.8 fl (80.0-94.0); MEAN CORPUSCULAR HGB 25.9 pg (27.0-31.0); MEAN CORPUSCULAR HGB CONC 30.9 g/dl (33.0-37.0); MEAN PLATELET VOLUME 9.5 fl (9.6-12.3); MONO # 0.6 10*3/uL (0.1-1.0); MONO % 8.6 % (3.0-9.0); NEUT % 68.8 % (47.0-73.0); PLATELET COUNT AUTOMATED 311 10*3/uL (130-400); RED BLOOD COUNT 3.28 10*6/uL (4.50-5.90); RED CELL DISTRI WIDTH 17.3 % (0-14.5); WHITE BLOOD COUNT 7.3 10*3/uL (4.8-10.8)
--- NOTE | 2017-02-08 08:51 | NUR ---
PATIENT OFF FLOOR FOR SCHEDULED TESTING.
--- NOTE | 2017-02-08 09:08 | NUR ---
PATIENT RETURNED TO ROOM.
--- NOTE | 2017-02-08 10:24 | NUR ---
PATIENT OFF FLOOR FOR SCHEDULED ROSY.
--- NOTE | 2017-02-08 11:03 | NUR ---
PHYSICAL THERAPY Patient seen this am 1:1 for therapy and was resting comfortably supine in bed upon therapist arrival. Patient transfers sup to sit Min/CGA x 1 and was Independent with donning R Prosthesis secondary to prior BKA. Patient transfers sit to stand CGA and completed several sit to stand transfers to improve initial static standing balance, requiring v/c to improve CLARICE, including weight shift. Patient ambulated with use of std walker, 40'x 1, Fair- balance, demonstrating uneven stride and requiring v/c for both upright posture and safer walker/step sequence. Patient returned to bedside chair with increased fatigue noted and remained with call light, telephone and tray table. Total treatment time 23 minutes and will continue per POC to improve functional mobilty and transfers to prevent increased risk of falls. Jose Gil, SENIOR CONSULTANT
--- NOTE | 2017-02-08 11:40 | NUR ---
[facility] has requested updated therapy notes for precert. Faxed updated PT notes, will fax OT note as soon as available.
--- NOTE | 2017-02-08 13:00 | NUR ---
CALLED AT THIS TIME REGARDING DIET ORDER.
--- NOTE | 2017-02-08 13:02 | NUR ---
Patient seen for occupational therapy treatment. Patient completed a bed mobility activity and required CGA and verbal cues to slow down due to decreased saftey awareness. Patient sat at EOB wtih SBA for static sitting. When prompted to put on left shoe, Patient with poor/fair dynamic sitting balance. Patient with LOB retrograde while seated at EOB when attempting to don left shoe. Patient required min A for safe sit to stand transfer using FWW to chair. Notified nurse that patient in chair with family member present. Patient was seen for 20 minutes of OT this date. Amelia Reed OTR/Katerin
--- NOTE | 2017-02-08 14:55 | NUR ---
CALLED REGARDING TRANSFER. AWAITING TRANSFER ORDERS PER .
[2017-02-08] MEDS ORDERED: VANCOMYCIN750 MG/250 IV (15:11)
[2017-02-08] MEDS ORDERED: METOPROLOL SUCC25 M2 PO (15:11)
[2017-02-08] MEDS ORDERED: ATORVASTATIN CA80 M1 PO (15:11)
[2017-02-08] MEDS ORDERED: FEROSUL325 MG PO (15:11)
[2017-02-08] MEDS ORDERED: ASPIRIN ADULT L81 M2 PO (15:11)
[2017-02-08] MEDS ORDERED: ZOSYN 3.373.375 GM/5 IV (15:11)
[2017-02-08] MEDS ORDERED: ENOXAPARIN60 MG/0.2 SC (15:11)
--- NOTE | 2017-02-08 15:36 | NUR ---
Discharge instructions reviewed with patient/family. Patient receptive and verbalizes understanding. Follow-up care arranged. Written instructions given to patient/family. MICHELL STEELE.
--- NOTE | 2017-02-08 15:57 | NUR ---
[facility] NOTIFIED AT THIS TIME AND WILL BE HERE TO TRANSPORT PATIENT TO [facility] PER ORDER. BELONGINGS SENT HOME WITH .
--- NOTE | 2017-02-08 16:23 | NUR ---
[facility] HERE TO TRANSPORT PATIENT TO [facility] PER ORDER.
--- NOTE | 2017-02-08 17:01 | NUR ---
REPORT GIVEN TO NURSE AT [facility].
--- NOTE | 2017-02-09 06:28 | NUR ---
PHYSICAL THERAPY CO-SIGN I approve of the Phyical Therapy notes written above. BRYON MCKAY PT
[2017-02-10 13:10] LABS: ORGANISM ID Final report (.)
== END 2017-02-08 16:23 | disposition short-term general hospital (02) | DRG 871 ==
LOC: ED 21:42 → ICCU 02-03 00:08 → 5E 02-03 00:08 → EDHOLD 02-03 00:08 → ICCU 02-03 00:25 → 5E 02-04 18:19
PROVIDERS: Emergency Medicine Emergency Medical Services; Internal Medicine; Internal Medicine Hospice and Palliative Medicine; ADMIT Internal Medicine
PROC: 4A02XM4 Measurement of Cardiac Total Activity, External Approach (ICD-10-PCS; principal; 2017-02-07)
PROC: 3E073KZ Introduction of Other Diagnostic Substance into Coronary Artery, Percutaneous Approach (ICD-10-PCS; principal; 2017-02-07)
PROC: B246ZZ4 Ultrasonography of Right and Left Heart, Transesophageal (ICD-10-PCS; 2017-02-08)
DX: A41.89 Other specified sepsis (principal); I21.4 Non-ST elevation (NSTEMI) myocardial infarction; I63.9 Cerebral infarction, unspecified; E43 Unspecified severe protein-calorie malnutrition; G93.41 Metabolic encephalopathy; I33.0 Acute and subacute infective endocarditis; N39.0 Urinary tract infection, site not specified; Z68.1 Body mass index [BMI] 19.9 or less, adult; R65.20 Severe sepsis without septic shock; D50.0 Iron deficiency anemia secondary to blood loss (chronic); K21.9 Gastro-esophageal reflux disease without esophagitis; E83.41 Hypermagnesemia; E87.8 Other disorders of electrolyte and fluid balance, not elsewhere classified; I73.9 Peripheral vascular disease, unspecified; E78.5 Hyperlipidemia, unspecified; C61 Malignant neoplasm of prostate; B96.89 Other specified bacterial agents as the cause of diseases classified elsewhere; Z71.6 Tobacco abuse counseling; Z72.0 Tobacco use; Z88.8 Allergy status to other drugs, medicaments and biological substances; Z79.899 Other long term (current) drug therapy; Z90.49 Acquired absence of other specified parts of digestive tract; Z89.511 Acquired absence of right leg below knee; Z80.0 Family history of malignant neoplasm of digestive organs; Z82.49 Family history of ischemic heart disease and other diseases of the circulatory system; Z92.3 Personal history of irradiation